=== PATIENT | male | born 1975 | race Caucasian/White ===

== ENCOUNTER 2025-03-10 07:06 | Emergency (ER) | payer BC, SELFPAY ==
[2025-03-10] VITALS (7 sets, daily range): BP systolic 138–165; BP diastolic 76–97; BMI 28.4
--- NOTE | 2025-03-10 08:14 | ED.GENMED ---
History of Present Illness
General
Chief Complaint: Blood Pressure Problem
Source: patient
Exam Limitations: none
Time Seen by Provider: 03/10/25 07:37
Nursing documentation reviewed up to this point in time: agreed with
History of Present Illness
History of Present Illness:
Patient is a 49-year-old male who presents to the ER for evaluation. Patient reports 2 nights ago on Monday night while sitting relaxing he had an episode of chest pain that lasted for 1-1/2 hours and resolved on its own he had no associated
shortness of breath nausea vomiting diaphoresis or radiation. Yesterday, Monday again midmorning around 10 AM he had same discomfort which lingered all day. He had no shortness of breath and no radiation nausea vomiting diaphoresis. It was not
associate with exertion yesterday. Because of symptoms he took his blood pressure and noticed it was high yesterday as high as 190/100. He has no diagnosis of high blood pressure. He is asymptomatic.
He is asymptomatic.
He has no cardiac history however does report his father had significant heart cardiac history and had a stent at age 47.
Patient is a non-smoker.
Patient had an episode of chest pain and shortness of breath 3 months ago while golfing.
Past History
Past History
ED Past Medical History: None
Social History
Tobacco: Former smoker
Alcohol: Former
Drug: None
Personal:
Phy Exam
General Physical Exam
General Presentation: no apparent distress
General age: appears stated age
General Skin: warm and dry
General Mental: alert
General Hydration: appears well hydrated
Cardiovascular Exam
Cardiovascular Exam: regular rate/rhythm, no murmur and normal peripheral pulses
Pulmonary Exam
Pulmonary Exam: lungs clear and no respiratory distress
Neurological Exam
Neurological Exam: alert and oriented x3
Musculoskeletal Exam
Musculoskeletal Exam: full ROM
Skin Exam
Skin Exam: normal color and warm/dry
Psychiatric Exam
Psychiatric Exam: normal mood/affect
Course
Orders/Labs/Results
Orders:
Orders
03/10/25 07:07
EKG [Electrocardiogram (*1)] Urgent
Reason for Study: Chest Pain
EKG- Treatment ONCE
03/10/25 08:13
IV Insert/Care/Rem.- Treatment PRN
03/10/25 08:14
Cardiac Monitoring- Treatment ONCE
CR Chest - 2 Views Urgent
Comment:
Reason For Exam: cp
03/10/25 08:50
Complete Blood Count/With Diff Urgent
Comprehensive Metabolic Panel Urgent
Troponin I Urgent
03/10/25 09:43
EKG- Treatment ONCE
03/10/25 11:50
Electrocardiogram (*1) Urgent
Reason for Study: Chest Pain
03/10/25 12:03
Troponin I Urgent
Abnormal Lab Results
03/10/25
08:50
RBC 4.63 L 10^6/uL
(4.70-6.10)
MCH 32.2 H pg
(27.0-31.0)
Monocytes % 9.9 H %
(1.7-9.3)
Glucose 109 H mg/dl
(70-99)
Alkaline Phosphatase 37 L U/L
(38-126)
03/10/25 08:50
03/10/25 08:50
Vital Signs
Initial and Last Documented VS:
Initial Vital Signs
Temp Pulse Resp Pulse Ox
98.4 F 69 16 100
03/10/25 07:10 03/10/25 07:10 03/10/25 07:10 03/10/25 07:10
Last Documented Vital Signs
Temp Pulse Resp BP Pulse Ox
98.4 F 65 14 143/88 98
03/10/25 07:10 03/10/25 12:00 03/10/25 12:00 03/10/25 12:00 03/10/25 08:30
MDM/Problems Addressed
Differential Diagnosis Includes:
Not limited to ACS muscular pain high blood pressure
MDM/Problems Addressed:
49-year-old male with family history of heart disease presents for episode of chest pain that occurred on Monday As well as yesterday. Patient presented asymptomatic. He also noted that his blood pressure was elevated at that time. He has no
cardiac history however his father does have significant cardiac history and had a stent in his 40s. Patient had no acute EKG changes and had normal cardiac troponin x 2 here in the ER and remained asymptomatic. Will DC with chest pain hotline I
did review with patient to avoid exertional activities until seen by cardiology. He has remained asymptomatic stable well-appearing in no acute distress here in the ER safer discharge
*Radiology
Radiology exam reviewed: radiology read reviewed
*Pulse Oximetry
SaO2: 98
Oxygen Mode of Delivery: Room air
Patient hypoxic: no
*EKG
Interpreted by ED Provider?: Yes
Rate: normal
Rhythm: sinus
Ischemia: no ischemia
*Critical Care Note
Total Time (30-74mins, 75-104mins- exclusive of procedures): Not Applicable
ED Attending Note
-
Portions of this chart may have been created with voice recognition software.� Occasional wrong word or��sound alike� substitutions may have occurred due to the inherent limitations of voice recognition software.
Discharge Plan
Departure
Patient Disposition: Home (Routine Discharge)
Date of Disposition: 03/10/25
Time of Disposition: 13:09
Patient with high blood pressure during this ER visit?: Yes
Condition: Fair
Covid-19: Not Applicable
Discharge Problem:
Chest pain
Instructions: High Blood Pressure (DC), Chest Pain DCA Follow Up, BLOOD PRESSURE
Prescriptions:
No Action
acetaminophen 325 MG tablet
650 mg PO Q4HPRN PRN (Reason: fever)
valacyclovir 500 MG tablet
500 mg PO DAILY
montelukast 10 MG tablet
10 mg PO DAILY
albuterol sulfate [Albuterol Sulfate HFA] 18 GM HFA aerosol inhaler
2 puff inhalation Q4HPRN PRN (Reason: asthma)
Spiriva Respimat 1 PUFF mist
2 puff inhalation DAILY
(DME) blood-glucose meter [Contour Next One Meter] 1 EACH misc
1 ea MC DIRECTED Qty: 1 0RF
(DME) Contour Next Test Strips 1 EACH strip
1 ea MC ACHS Qty: 200 0RF
(DME) pen needle, diabetic [BD Ultra-Fine Micro Pen Needle] 1 EACH needle
1 ea MC ACHS Qty: 200 0RF
Rx Instructions:
BD MICHAEL 4mm pen needle
(DME) lancets [Color Lancets] 1 EACH misc
1 ea MC ACHS Qty: 200 0RF
hydrocodone-acetaminophen 5-325 mg tablet
1 tab PO Q8H PRN (Reason: Pain) Qty: 10 0RF
turmeric 400 mg Capsule
800 mg PO DAILY
Co Q-10
1 tab PO DAILY
Vitamin B Root
2 tab PO DAILY
Referrals:
Jennifer Priest DO [Active, Cardiology]
Ed Chase DO [Family Provider, Family Practice]
Activity Restrictions/Additional Instructions:
As discussed you are placed on the chest pain hotline. You should receive a phone call from the office in the next 1 to 2 days. If you do not please give the office a call to schedule an appointment soon as possible. Avoid exertional activities
until you are seen and cleared by cardiology. Return if any worsening of symptoms.
Interventions
Interventions:
*General Assessment Last Done: 03/10/25 07:37
*Neglect/Abuse Screening Last Done: 03/10/25 07:37
*ED- Fall Risk Assessment Last Done: 03/10/25 07:37
*ED COVID-19 Vaccine History Last Done: 03/10/25 07:37
ED- Cardiac Assessment Last Done: 03/10/25 07:39
ED- Neurological Assessment Last Done: 03/10/25 07:39
ED- Pulmonary Assessment Last Done: 03/10/25 07:39
Discharge Date and Time
Print Language: [place] CITIZ[place]
[2025-03-10 09:01] LABS: Hematocrit 42.4 % (39.0-52.0); Hemoglobin 14.9 g/dL (13.0-18.0); Mean Corp Hgb Conc. 35.1 g/dL (33.0-37.0); Mean Corpuscular Volume 91.6 fL (80.0-94.0); Nucleated Red Blood Cells % 0 % (-); Platelet Count 198 10^3/uL (130-400); Red Cell Dist. Width 11.9 % (11.5-14.5)
[2025-03-10 09:26] LABS: Troponin I < 0.012 ng/ml
[2025-03-10 09:27] LABS: ALT (SGPT) 38 U/L (0-50); AST (SGOT) 29 U/L (17-59); Albumin 4.6 g/dl (3.5-5.0); Alkaline Phosphatase 37 U/L (38-126); Blood Urea Nitrogen 15 mg/dl (9-20); Calcium 9.4 mg/dl (8.4-10.2); Carbon Dioxide 27 mmol/L (22-30); Chloride 106 mmol/L (98-107); Estimated Creatinine Clearance 107 ml/min; Glucose 109 mg/dl (70-99); Potassium 4.3 mmol/L (3.5-5.1); Sodium 139 mmol/L (135-145); Total Protein 6.9 g/dl (6.3-8.2); eGFR > 60.00
[2025-03-10 12:37] LABS: Troponin I < 0.012 ng/ml
== END 2025-03-10 13:21 | disposition home or self-care (01) ==
LOC: EMR 07:06
PROVIDERS: Nurse Practitioner; EMERGENCY PHYSICIAN Emergency Medicine; FAMILY PHYSICIAN Family Medicine
DX: R07.89 Other chest pain (principal); Z87.891 Personal history of nicotine dependence
CPT/HCPCS: 99285; 71046; 80053; 84484; 85025; 93005